=== PATIENT | female | born 1990 | race Caucasian/White ===

== ENCOUNTER 2017-06-09 18:30 | Emergency (ER) | payer MEDICAID, OTHER ==
[~2017-06-09] VITALS: Ht 152.4 cm; Wt 52.3 kg
[2017-06-09 18:53] VITALS: Ht 152.4 cm; Wt 52.3 kg
[2017-06-09] MEDS ORDERED: ACETAMINOPHEN 325 MG TAB PO STA (19:38)
--- NOTE | 2017-06-09 19:42 | ERD ---
ER Documentation Chief Complaint Chief Complaint vaginal bleeding/painful urination, states 4 months HPI Otherwise healthy 27-year-old female presents with a chief complaint of vaginal pain 2 days. 16 weeks by LMP. Describes minimal bleeding. Quantified is small. Pain is 2 out of 10. No previous complications with . No similar symptoms in past. Has not taken medications. Denies abdominal pain, nausea, vomiting, diarrhea, fever, chills. Patient has no other complaints and describes no other associated manifestations. Nursing notes have been reviewed and are consistent with history given. ROS All systems reviewed and are negative except as per history of present illness. Medications Home Meds Active Scripts Nitrofurantoin Monohyd Macrocr* (Macrobid*) 100 Mg Capsr, 100 MG PO BID for 14 Days, CAP Prov:CLAIRE ROBLES PA-C 06/09/17 Allergies Allergies: Coded Allergies: No Known Drug Allergies (Verified Allergy, Unknown, 06/09/17) PMhx/Soc Medical and Surgical Hx: pt denies Medical Hx, pt denies Surgical Hx History of Surgery: No Anesthesia Reaction: No Hx Neurological Disorder: No Hx Respiratory Disorders: No Hx Cardiac Disorders: No Hx Psychiatric Problems: No Hx Miscellaneous Medical Probl: No Hx Alcohol Use: No Hx Substance Use: No Hx Tobacco Use: No Smoking Status: Never smoker Physical Exam Vitals Vital Signs Date Time Temp Pulse Resp B/P Pulse Ox O2 Delivery O2 Flow Rate FiO2 06/09/17 21:34 98.2 71 17 106/54 99 Room Air 06/09/17 18:53 98.1 62 20 110/59 99 Physical Exam Const: Well-appearing 27-year-old female no acute distress Head: Atraumatic Eyes: Normal Conjunctiva ENT: Normal External Ears, Nose and Mouth. Neck: Full range of motion..~ No meningismus. Resp: Clear to auscultation bilaterally Cardio: Regular rate and rhythm, no murmurs Abd: Soft, non tender, non distended. Normal bowel sounds Skin: No petechiae or rashes Back: No midline or flank tenderness Ext: No cyanosis, or edema Neur: Awake and alert Psych: Normal Mood and Affect Result Diagram: 06/09/171953 Results 24 hrs Laboratory Tests Test 06/09/17 19:54 White Blood Count 14.310^3/ul Red Blood Count 3.9110^6/ul Hemoglobin 12.4g/dl Hematocrit 35.5% Mean Corpuscular Volume 90.8fl Mean Corpuscular Hemoglobin 31.7pg Mean Corpuscular Hemoglobin Concent 34.9g/dl Red Cell Distribution Width 13.6% Platelet Count 28319^3/UL Mean Platelet Volume 10.7fl Neutrophils % 85.6% Lymphocytes % 9.4% Monocytes % 4.1% Eosinophils % 0.2% Basophils % 0.3% Nucleated Red Blood Cells % 0.0/100WBC Neutrophils # 12.210^3/ul Lymphocytes # 1.310^3/ul Monocytes # 0.610^3/ul Eosinophils # 0.010^3/ul Basophils # 0.010^3/ul Nucleated Red Blood Cells # 0.010^3/ul Urine Color YELLOW Urine Clarity CLOUDY Urine pH 6.0 Urine Specific [place] 1.023 Urine Ketones 1+mg/dL Urine Nitrite NEGATIVEmg/dL Urine Bilirubin NEGATIVEmg/dL Urine Urobilinogen 1+mg/dL Urine Leukocyte Esterase 3+Sujatha/ul Urine Microscopic RBC 26/HPF Urine Microscopic WBC > 182/HPF Urine Squamous Epithelial Cells MODERATE/HPF Urine Bacteria FEW/HPF Urine Mucus MODERATE/HPF Urine Hemoglobin 1+mg/dL Urine Glucose NEGATIVEmg/dL Urine Total Protein 2+mg/dl Beta HCG, Quantitative 65081.0mIU/ml Current Medications Medications (Trade) Dose Ordered Sig/Sheryl Route PRN Reason Start Time Stop Time Status Last Admin Dose Admin Acetaminophen (Tylenol Tab) 650 mg ONCE STAT PO 06/09/17 19:38 06/09/17 19:41 DC 06/09/17 19:56 Procedures/MDM Patient is being evaluated and worked up for pelvic pain and minimal vaginal bleeding versus hematuria as described in the history and physical exam. My current differential diagnosis includes, but is not limited to, the following: pelvic inflammatory disease, nephrolithiasis, urinary tract infection, spontaneous , demise, and vaginitis, among others. Patient was given acetaminophen in the ED with adequate relief of symptoms. Labs revealed the following: WBC 14.3. RBC 3.9. Neutrophils 85.6. Lymphocyte 9.4. Beta-hCG 43,405.0. Urinalysis: 3+ leukocyte esterase. 26 RBC. More than 182 WBC. Few bacteria. 1+ hemoglobin. 2+ protein. The US was read by the radiologist and given the following impression: 1. Single live intrauterine gestation of 16 weeks 5 days menstrual age by ultrasound dates. 2. The estimated date of delivery is 11/19/2017. At this time, I have little suspicion for , ectopic , placenta previa, blood vessel rupture, PPROM, pyelonephritis, or other serious bacterial infection. Most likely diagnosis is urinary tract infection. Patient will be treated with Macrobid 14 days. Results have been given to the patient with instructions to follow-up with DIRECTOR OF REHABILITATION AND WELLNESS in 2 days. Patient is being followed by [facility]. I have spoke with the patient regarding their condition and future management. They have verbally responded that they understand their status and treatment plan. The patients vitals are stable, and their current condition is appropriate for discharge. The patient will be given discharge instructions with return precautions. Departure Diagnosis: Primary Impression: Vaginal bleeding Additional Impression: Vaginal bleeding in patient at less than 20 weeks gestation Condition: Stable Additional Instructions: Follow-up with DIRECTOR OF REHABILITATION AND WELLNESS in 2 days. Return the the emergency department immediately if symptoms worsen or change. If you have any questions regarding medications, ask your pharmacist or us before you leave. If any adverse reactions occur while taking your medications, discontinue the treatment and return to the emergency department immediately. Take your medications as directed, and complete the entire course of treatment. CLAIRE ROBLES PA-C Jun 09, 2017 19:42
--- NOTE | 2017-06-09 19:42 | ERD ---
ER Documentation Chief Complaint Chief Complaint vaginal bleeding/painful urination, states 4 months HPI Otherwise healthy 27-year-old female presents with a chief complaint of vaginal pain 2 days. 16 weeks by LMP. Describes minimal bleeding. Quantified is small. Pain is 2 out of 10. No previous complications with . No similar symptoms in past. Has not taken medications. Denies abdominal pain, nausea, vomiting, diarrhea, fever, chills. Patient has no other complaints and describes no other associated manifestations. Nursing notes have been reviewed and are consistent with history given. ROS All systems reviewed and are negative except as per history of present illness. Medications Home Meds Active Scripts Nitrofurantoin Monohyd Macrocr* (Macrobid*) 100 Mg Capsr, 100 MG PO BID for 14 Days, CAP Prov:CLAIRE ROBLES PA-C 06/09/17 Allergies Allergies: Coded Allergies: No Known Drug Allergies (Verified Allergy, Unknown, 06/09/17) PMhx/Soc Medical and Surgical Hx: pt denies Medical Hx, pt denies Surgical Hx History of Surgery: No Anesthesia Reaction: No Hx Neurological Disorder: No Hx Respiratory Disorders: No Hx Cardiac Disorders: No Hx Psychiatric Problems: No Hx Miscellaneous Medical Probl: No Hx Alcohol Use: No Hx Substance Use: No Hx Tobacco Use: No Smoking Status: Never smoker Physical Exam Vitals Vital Signs Date Time Temp Pulse Resp B/P Pulse Ox O2 Delivery O2 Flow Rate FiO2 06/09/17 21:34 98.2 71 17 106/54 99 Room Air 06/09/17 18:53 98.1 62 20 110/59 99 Physical Exam Const: Well-appearing 27-year-old female no acute distress Head: Atraumatic Eyes: Normal Conjunctiva ENT: Normal External Ears, Nose and Mouth. Neck: Full range of motion..~ No meningismus. Resp: Clear to auscultation bilaterally Cardio: Regular rate and rhythm, no murmurs Abd: Soft, non tender, non distended. Normal bowel sounds Skin: No petechiae or rashes Back: No midline or flank tenderness Ext: No cyanosis, or edema Neur: Awake and alert Psych: Normal Mood and Affect Result Diagram: 06/09/171953 Results 24 hrs Laboratory Tests Test 06/09/17 19:54 White Blood Count 14.310^3/ul Red Blood Count 3.9110^6/ul Hemoglobin 12.4g/dl Hematocrit 35.5% Mean Corpuscular Volume 90.8fl Mean Corpuscular Hemoglobin 31.7pg Mean Corpuscular Hemoglobin Concent 34.9g/dl Red Cell Distribution Width 13.6% Platelet Count 96516^3/UL Mean Platelet Volume 10.7fl Neutrophils % 85.6% Lymphocytes % 9.4% Monocytes % 4.1% Eosinophils % 0.2% Basophils % 0.3% Nucleated Red Blood Cells % 0.0/100WBC Neutrophils # 12.210^3/ul Lymphocytes # 1.310^3/ul Monocytes # 0.610^3/ul Eosinophils # 0.010^3/ul Basophils # 0.010^3/ul Nucleated Red Blood Cells # 0.010^3/ul Urine Color YELLOW Urine Clarity CLOUDY Urine pH 6.0 Urine Specific [place] 1.023 Urine Ketones 1+mg/dL Urine Nitrite NEGATIVEmg/dL Urine Bilirubin NEGATIVEmg/dL Urine Urobilinogen 1+mg/dL Urine Leukocyte Esterase 3+Sujatha/ul Urine Microscopic RBC 26/HPF Urine Microscopic WBC > 182/HPF Urine Squamous Epithelial Cells MODERATE/HPF Urine Bacteria FEW/HPF Urine Mucus MODERATE/HPF Urine Hemoglobin 1+mg/dL Urine Glucose NEGATIVEmg/dL Urine Total Protein 2+mg/dl Beta HCG, Quantitative 52453.0mIU/ml Current Medications Medications (Trade) Dose Ordered Sig/Sheryl Route PRN Reason Start Time Stop Time Status Last Admin Dose Admin Acetaminophen (Tylenol Tab) 650 mg ONCE STAT PO 06/09/17 19:38 06/09/17 19:41 DC 06/09/17 19:56 Procedures/MDM Patient is being evaluated and worked up for pelvic pain and minimal vaginal bleeding versus hematuria as described in the history and physical exam. My current differential diagnosis includes, but is not limited to, the following: pelvic inflammatory disease, nephrolithiasis, urinary tract infection, spontaneous , demise, and vaginitis, among others. Patient was given acetaminophen in the ED with adequate relief of symptoms. Labs revealed the following: WBC 14.3. RBC 3.9. Neutrophils 85.6. Lymphocyte 9.4. Beta-hCG 43,405.0. Urinalysis: 3+ leukocyte esterase. 26 RBC. More than 182 WBC. Few bacteria. 1+ hemoglobin. 2+ protein. The US was read by the radiologist and given the following impression: 1. Single live intrauterine gestation of 16 weeks 5 days menstrual age by ultrasound dates. 2. The estimated date of delivery is 11/19/2017. At this time, I have little suspicion for , ectopic , placenta previa, blood vessel rupture, PPROM, pyelonephritis, or other serious bacterial infection. Most likely diagnosis is urinary tract infection. Patient will be treated with Macrobid 14 days. Results have been given to the patient with instructions to follow-up with PAIN MEDICINE PHYSICIAN in 2 days. Patient is being followed by [facility]. I have spoke with the patient regarding their condition and future management. They have verbally responded that they understand their status and treatment plan. The patients vitals are stable, and their current condition is appropriate for discharge. The patient will be given discharge instructions with return precautions. Departure Diagnosis: Primary Impression: Vaginal bleeding Additional Impression: Vaginal bleeding in patient at less than 20 weeks gestation Condition: Stable Additional Instructions: Follow-up with PAIN MEDICINE PHYSICIAN in 2 days. Return the the emergency department immediately if symptoms worsen or change. If you have any questions regarding medications, ask your pharmacist or us before you leave. If any adverse reactions occur while taking your medications, discontinue the treatment and return to the emergency department immediately. Take your medications as directed, and complete the entire course of treatment. CLAIRE ROBLES PA-C Jun 09, 2017 19:42
--- NOTE | 2017-06-09 19:42 | ERD ---
ER Documentation Chief Complaint Chief Complaint vaginal bleeding/painful urination, states 4 months HPI Otherwise healthy 27-year-old female presents with a chief complaint of vaginal pain 2 days. 16 weeks by LMP. Describes minimal bleeding. Quantified is small. Pain is 2 out of 10. No previous complications with . No similar symptoms in past. Has not taken medications. Denies abdominal pain, nausea, vomiting, diarrhea, fever, chills. Patient has no other complaints and describes no other associated manifestations. Nursing notes have been reviewed and are consistent with history given. ROS All systems reviewed and are negative except as per history of present illness. Medications Home Meds Active Scripts Nitrofurantoin Monohyd Macrocr* (Macrobid*) 100 Mg Capsr, 100 MG PO BID for 14 Days, CAP Prov:CLAIRE ROBLES PA-C 06/09/17 Allergies Allergies: Coded Allergies: No Known Drug Allergies (Verified Allergy, Unknown, 06/09/17) PMhx/Soc Medical and Surgical Hx: pt denies Medical Hx, pt denies Surgical Hx History of Surgery: No Anesthesia Reaction: No Hx Neurological Disorder: No Hx Respiratory Disorders: No Hx Cardiac Disorders: No Hx Psychiatric Problems: No Hx Miscellaneous Medical Probl: No Hx Alcohol Use: No Hx Substance Use: No Hx Tobacco Use: No Smoking Status: Never smoker Physical Exam Vitals Vital Signs Date Time Temp Pulse Resp B/P Pulse Ox O2 Delivery O2 Flow Rate FiO2 06/09/17 21:34 98.2 71 17 106/54 99 Room Air 06/09/17 18:53 98.1 62 20 110/59 99 Physical Exam Const: Well-appearing 27-year-old female no acute distress Head: Atraumatic Eyes: Normal Conjunctiva ENT: Normal External Ears, Nose and Mouth. Neck: Full range of motion..~ No meningismus. Resp: Clear to auscultation bilaterally Cardio: Regular rate and rhythm, no murmurs Abd: Soft, non tender, non distended. Normal bowel sounds Skin: No petechiae or rashes Back: No midline or flank tenderness Ext: No cyanosis, or edema Neur: Awake and alert Psych: Normal Mood and Affect Result Diagram: 06/09/171953 Results 24 hrs Laboratory Tests Test 06/09/17 19:54 White Blood Count 14.310^3/ul Red Blood Count 3.9110^6/ul Hemoglobin 12.4g/dl Hematocrit 35.5% Mean Corpuscular Volume 90.8fl Mean Corpuscular Hemoglobin 31.7pg Mean Corpuscular Hemoglobin Concent 34.9g/dl Red Cell Distribution Width 13.6% Platelet Count 42320^3/UL Mean Platelet Volume 10.7fl Neutrophils % 85.6% Lymphocytes % 9.4% Monocytes % 4.1% Eosinophils % 0.2% Basophils % 0.3% Nucleated Red Blood Cells % 0.0/100WBC Neutrophils # 12.210^3/ul Lymphocytes # 1.310^3/ul Monocytes # 0.610^3/ul Eosinophils # 0.010^3/ul Basophils # 0.010^3/ul Nucleated Red Blood Cells # 0.010^3/ul Urine Color YELLOW Urine Clarity CLOUDY Urine pH 6.0 Urine Specific [place] 1.023 Urine Ketones 1+mg/dL Urine Nitrite NEGATIVEmg/dL Urine Bilirubin NEGATIVEmg/dL Urine Urobilinogen 1+mg/dL Urine Leukocyte Esterase 3+Sujatha/ul Urine Microscopic RBC 26/HPF Urine Microscopic WBC > 182/HPF Urine Squamous Epithelial Cells MODERATE/HPF Urine Bacteria FEW/HPF Urine Mucus MODERATE/HPF Urine Hemoglobin 1+mg/dL Urine Glucose NEGATIVEmg/dL Urine Total Protein 2+mg/dl Beta HCG, Quantitative 08101.0mIU/ml Current Medications Medications (Trade) Dose Ordered Sig/Sheryl Route PRN Reason Start Time Stop Time Status Last Admin Dose Admin Acetaminophen (Tylenol Tab) 650 mg ONCE STAT PO 06/09/17 19:38 06/09/17 19:41 DC 06/09/17 19:56 Procedures/MDM Patient is being evaluated and worked up for pelvic pain and minimal vaginal bleeding versus hematuria as described in the history and physical exam. My current differential diagnosis includes, but is not limited to, the following: pelvic inflammatory disease, nephrolithiasis, urinary tract infection, spontaneous , demise, and vaginitis, among others. Patient was given acetaminophen in the ED with adequate relief of symptoms. Labs revealed the following: WBC 14.3. RBC 3.9. Neutrophils 85.6. Lymphocyte 9.4. Beta-hCG 43,405.0. Urinalysis: 3+ leukocyte esterase. 26 RBC. More than 182 WBC. Few bacteria. 1+ hemoglobin. 2+ protein. The US was read by the radiologist and given the following impression: 1. Single live intrauterine gestation of 16 weeks 5 days menstrual age by ultrasound dates. 2. The estimated date of delivery is 11/19/2017. At this time, I have little suspicion for , ectopic , placenta previa, blood vessel rupture, PPROM, pyelonephritis, or other serious bacterial infection. Most likely diagnosis is urinary tract infection. Patient will be treated with Macrobid 14 days. Results have been given to the patient with instructions to follow-up with STATISTICS TUTOR in 2 days. Patient is being followed by [facility]. I have spoke with the patient regarding their condition and future management. They have verbally responded that they understand their status and treatment plan. The patients vitals are stable, and their current condition is appropriate for discharge. The patient will be given discharge instructions with return precautions. Departure Diagnosis: Primary Impression: Vaginal bleeding Additional Impression: Vaginal bleeding in patient at less than 20 weeks gestation Condition: Stable Additional Instructions: Follow-up with STATISTICS TUTOR in 2 days. Return the the emergency department immediately if symptoms worsen or change. If you have any questions regarding medications, ask your pharmacist or us before you leave. If any adverse reactions occur while taking your medications, discontinue the treatment and return to the emergency department immediately. Take your medications as directed, and complete the entire course of treatment. CLAIRE ROBLES PA-C Jun 09, 2017 19:42
--- NOTE | 2017-06-09 20:17 | RADRPT ---
PROCEDURE: US OB. CLINICAL INDICATION: Vaginal bleeding. TECHNIQUE: Multiple sonographic images of the uterus were obtained. The images were revi ewed on a PACS workstation. COMPARISON: No prior studies are available for comparison. FINDINGS: There is a single live intrauterine gestation. heart rate is 128 beats per minute. Measurements were made in order to determine age. The results are as follows: BPD = 3.51 cm. HC = 12.86 cm. AC = 11.12 cm. FL = 2.20 cm. Estimated weight is 168 +/- 25 grams. The ovaries are unremarkable. Menstrual age by ultrasound dates is 16 weeks 5 days. The estimated date of delivery is 11/19/2017. Position is variable and placenta is posterior grade 0. There is no evidence for an abruption or ro[place]anne centa previa. IMPRESSION: 1. Single live intrauterine gestation of 16 weeks 5 days menstrual age by ultrasound dates. 2. The estimated date of delivery is 11/19/2017. RPTAT: QQ .López Garza MD, MD Date Time Electronically viewed and signed by .López Garza MD, on 06/09/2017 20:16 .R/
[2017-06-09] MEDS ORDERED: NITR-58 PO (21:30)
[2017-06-09 21:34] VITALS: BP 106/54; PULSE 71; RESP 17; TEMP 98.2
== END 2017-06-09 21:34 | disposition home or self-care (01) ==
LOC: FTE 18:30
DX: O20.9 Hemorrhage in early pregnancy, unspecified (principal); R10.2 Pelvic and perineal pain; Z3A.16 16 weeks gestation of pregnancy
CPT/HCPCS: 36415; 76805; 81001; 84702; 85025; 86900; 86901; Z7502; Z7610

== ENCOUNTER 2017-11-15 19:51 | Outpatient (CLI) | END 2017-11-16 01:04 | disposition home or self-care (01) ==

== ENCOUNTER 2017-11-18 00:32 | Inpatient (IN) | END 2017-11-20 14:48 | disposition home or self-care (01) | DRG 775 ==